=== PATIENT | female | born 1985 | race Caucasian/White ===

== ENCOUNTER 2017-05-22 19:34 | Emergency (ER) | payer MEDICAID ==
[2017-05-22 21:23] LABS: BASOPHIL % 1.8 % (0-2); PLATELET COUNT 165 x10^3mcL (130-400); RED CELL DISTRIBUTION WIDTH 11.8 % (11.5-14.5)
[2017-05-22 21:30] LABS: CALCIUM 8.8 mg/dL (8.5-10.1); CARBON DIOXIDE 24.6 mmol/L (21-32); CHLORIDE SERUM 103 mmol/L (98-107); CREATININE SERUM 0.5 mg/dL (0.6-1.0); GFR1 > 60 mL/min; GLUCOSE SERUM 96 mg/dL (74-106); POTASSIUM SERUM 3.7 mmol/L (3.5-5.1); SODIUM SERUM 137 mmol/L (136-145)
[2017-05-22 21:34] LABS: ALBUMIN 3.6 g/dL (3.4-5.0); ALKALINE PHOSPHATASE 37 U/L (46-116); ALT/SGPT 17 U/L (14-59); AST/SGOT 11 U/L (15-37); BILIRUBIN TOTAL 0.5 mg/dL (0.20-1.00); LIPASE 141 IU/L (73-393); TOTAL PROTEIN, SERUM 7.3 g/dL (6.4-8.2)
[2017-05-22 22:22] LABS: UA SPECIFIC GRAVITY >=1.030 (1.005-1.035); microscopic required? YES; urine erythrocyte NEGATIVE (NEGATIVE)
[2017-05-22 23:11] VITALS: BP 117/45
== END 2017-05-22 23:11 | disposition home or self-care (01) ==
LOC: ED 19:34
PROVIDERS: Emergency Medicine
DX: O21.0 Mild hyperemesis gravidarum (principal); O26.891 Other specified pregnancy related conditions, first trimester; R10.13 Epigastric pain; Z3A.01 Less than 8 weeks gestation of pregnancy
CPT/HCPCS: J2405; J3490; J7030

== ENCOUNTER 2018-09-15 09:54 | Emergency (ER) | payer SELFPAY ==
[~2018-09-15] VITALS: Ht 157.5 cm; Wt 66.8 kg
[2018-09-15 10:10] VITALS: Ht 157.5 cm; Wt 66.8 kg
[2018-09-15 13:49] VITALS: BP 123/86
== END 2018-09-15 10:28 | disposition home or self-care (01) ==
LOC: ED 09:54
DX: K11.5 Sialolithiasis (principal)

== ENCOUNTER 2020-09-08 15:46 | Emergency (ER) | payer SELFPAY ==
[~2020-09-08] VITALS: Ht 162.6 cm; Wt 74.4 kg
[2020-09-08 16:08] VITALS: BP 129/47; Ht 162.6 cm; Wt 74.4 kg
[2020-09-08] MEDS ORDERED: MACROBID100 MG PO (17:11)
[2020-09-08] MEDS ORDERED: ACETAMINOPHEN-H1 TA1 PO (17:11)
== END 2020-09-08 17:18 | disposition home or self-care (01) ==
LOC: ED 15:46
DX: O23.41 Unspecified infection of urinary tract in pregnancy, first trimester (principal); Z3A.10 10 weeks gestation of pregnancy; Z87.442 Personal history of urinary calculi